=== PATIENT | male | born 1940 | race Caucasian/White ===

== ENCOUNTER 2021-04-27 15:32 | Inpatient (IN) | payer MEDICARE ==
[~2021-04-27] VITALS: Ht 165.1 cm; Wt 73.8 kg
[2021-04-27] MEDS ORDERED: DEPAKOTE ER 25250 MG PO ×2 (15:56→15:57)
[2021-04-27] MEDS ORDERED: ALLEGRA ALLERG180 MG PO (15:56)
[2021-04-27] MEDS ORDERED: FARXIGA10 PO (15:57)
[2021-04-27] MEDS ORDERED: ELIQUIS 2.5 PO (15:57)
[2021-04-27] MEDS ORDERED: ATROVENT I0.2 MG/1 M IH (15:58)
[2021-04-27] MEDS ORDERED: ZOLOFT 50MG50 MG PO (15:59)
[2021-04-27] MEDS ORDERED: PROTONIX 40MG T40 MG PO (15:59)
[2021-04-27] MEDS ORDERED: ZOCOR 20MG20 MG PO (15:59)
[2021-04-27] MEDS ORDERED: TRESIBA100 UNIT/1 SQ (16:00)
[2021-04-27] MEDS ORDERED: KENALOG DENTAL P5 GM DT (16:01)
[2021-04-27] MEDS ORDERED: VITAMIN D31000 IU PO (16:02)
[2021-04-27 18:33] LABS: BASO % 0.2 % (0.0-2.0); EOS # 0.1 K/mm3 (0.0-0.7); EOS % 0.8 % (0.0-4.0); GRAN # 7.5 K/mm3 (1.4-6.5); GRAN % 81.6 % (42.2-75.2); HEMATOCRIT 43.3 % (42.0-52.0); HEMOGLOBIN 13.8 g/dl (13.5-18.0); LYMPH # 0.9 K/mm3 (1.2-3.4); LYMPH % 10.2 % (20.0-51.0); MEAN CELL VOLUME 94 fl (80.0-100.0); MEAN CORPUSCULAR HEMOGLOBIN 30 pg (27-31); MEAN CORPUSCULAR HGB CONC 32 g/dl (33.0-37.0); MEAN PLATELET VOLUME 11.5 fl (7.4-10.4); MONO # 0.6 K/mm3 (0.1-0.6); MONO % 6.9 % (1.7-9.3); PLATELET COUNT 122 K/mm3 (130-400); RED BLOOD COUNT 4.63 M/mm3 (4.20-5.60); REDCELL DISTRIBUTION WIDTH-CV 14.3 % (11.5-14.5)
[2021-04-27 18:39] LABS: INR 1.3 (0.8-3.0); PROTHROMBIN TIME 13.9 SECONDS (9.7-12.8)
[2021-04-27 18:41] LABS: PARTIAL THROMBOPLASTIN TIME 31.7 SECONDS (26.0-37.0)
[2021-04-27 18:49] LABS: ALBUMIN 3.3 gm/dL (3.4-4.8); BILIRUBIN,TOTAL 0.5 mg/dL (0.2-1.2); CALCIUM 8.8 mg/dL (8.4-10.2); CREATININE, serum 1.64 mg/dL (0.72-1.25); POTASSIUM 4.8 mmol/L (3.5-4.5); TOTAL PROTEIN 6.8 gm/dL (6.2-8.1)
[2021-04-27] MEDS ORDERED: TYLENOL 325MG325 MG PO (19:11)
[2021-04-27] MEDS ORDERED: BENADRYL25 M2 PO (19:11)
[2021-04-27] MEDS ORDERED: GOOD NEIGH1200 MG/15 PO (19:12)
[2021-04-27] MEDS ORDERED: DULCOLAX S10 MG/SUPP RC (19:12)
[2021-04-27] MEDS ORDERED: NOVOLOG 100U100 U/M1 SQ (19:13)
[2021-04-27] MEDS ORDERED: NICORETTE4 MG PO (19:13)
[2021-04-27] MEDS ORDERED: MIRALAX PA17 GM/Dose PO (19:13)
[2021-04-27] MEDS ORDERED: NYSTATIN POWDER15 GM TOP (19:14)
[2021-04-27] MEDS ORDERED: ULTRAM 50MG TAB50 MG PO (19:14)
--- NOTE | 2021-04-27 19:15 | NUR ---
PT ADMITTED TO ROOM 325 FROM ER. A&OX4. O2 AT 4L N/C. NO RESP DISTRESS. INSERTED #16FR GONCALVES WITH IMMEDIATE RETURN OF CLEAR YELLOW URINE. CALL LIGHT IN REACH. BED ALARM SET.
[2021-04-27 19:28] VITALS: BP 123/64; PULSE 71; TEMP 98.3
[2021-04-27 19:50] LABS: COLLECTION METHOD CATHETER
[2021-04-27 19:56] LABS: MUCOUS Present (NOT PRESENT); PH 6 (5-8); SQUAMOUS EPITHELIAL None Seen /hpf (0-10); URINE APPEARANCE Clear (CLEAR/HAZY); URINE BACTERIA None Seen /hpf (NONE SEEN); URINE BILIRUBIN Negative (NEGATIVE); URINE BLOOD 1+ (NEGATIVE); URINE COLOR Yellow (YELLOW); URINE GLUCOSE 3+ (NEGATIVE); URINE KETONE Negative (NEGATIVE); URINE LEUKOCYTE ESTERASE Negative (NEGATIVE); URINE NITRATE Negative (NEGATIVE); URINE PROTEIN(semi-quant) Negative (NEGATIVE); URINE RBC 0-2 /hpf (0-2); URINE UROBILINOGEN Negative (NEGATIVE)
[2021-04-27 23:14] VITALS: BP 102/49; PULSE 73; TEMP 98.7
[2021-04-28] VITALS (249 sets, daily range): BP systolic 104–131; BP diastolic 48–78; PULSE 60–89; TEMP 97.4–98.4; O2SAT 63–100
[2021-04-28 05:40] LABS: BASO % 0.4 % (0.0-2.0); EOS % 0.6 % (0.0-4.0); GRAN # 4.6 K/mm3 (1.4-6.5); GRAN % 69.2 % (42.2-75.2); HEMATOCRIT 40.4 % (42.0-52.0); HEMOGLOBIN 12.6 g/dl (13.5-18.0); LYMPH # 1.1 K/mm3 (1.2-3.4); LYMPH % 16.7 % (20.0-51.0); MEAN CELL VOLUME 95 fl (80.0-100.0); MEAN CORPUSCULAR HEMOGLOBIN 30 pg (27-31); MEAN CORPUSCULAR HGB CONC 31 g/dl (33.0-37.0); MEAN PLATELET VOLUME 11.5 fl (7.4-10.4); MONO # 0.9 K/mm3 (0.1-0.6); MONO % 12.7 % (1.7-9.3); PLATELET COUNT 108 K/mm3 (130-400); RED BLOOD COUNT 4.25 M/mm3 (4.20-5.60); REDCELL DISTRIBUTION WIDTH-CV 14.3 % (11.5-14.5)
[2021-04-28 05:47] LABS: CALCIUM 8.3 mg/dL (8.4-10.2); CREATININE, serum 1.63 mg/dL (0.72-1.25); POTASSIUM 4.6 mmol/L (3.5-4.5)
--- NOTE | 2021-04-28 09:11 | NUR ---
SIMÓN contacted Lyndsey at [facility] and confirmed he is a long-term resident with them. He resides there with his . SIMÓN contacted the patient's granddaughter, Aleida Myers (ph#[phone]), to discuss discharge and inquire about a DPOA-HC. Aleida states that she does have a copy of the patient's DPOA-HC and will email it to his SW. SIMÓN provided her with this SIMÓN's email. Aleida states that she believes the DPOA-HC designates the patient's and then her. Aleida believes that the patient's is of sound mind. The patient's PCP is Dr. Garrison Gallagher. Aleida confirms thats that the plan is for the patient to return back to [facility] upon discharge. The patient has a fracture and will have surgery, once medically cleared. SIMÓN to fax updates to [facility] and will continue to follow. *Discharge plan: [facility] LTC*
--- NOTE | 2021-04-28 10:41 | NUR ---
SIMÓN received the patient's DPOA-HC, via email, from Aleida. SIMÓN placed the document in the patient's chart. The patient's DPOA-HC is his , Mary Harrington. The alternate is his granddaughter, Aleida Myers.
--- NOTE | 2021-04-28 10:43 | NUR ---
Social Work student faxed updates to [facility].
--- NOTE | 2021-04-28 12:50 | NUR ---
PT IS IN BED WITH EYES CLOSED, FREQUENTLY DRIFTS OFF TO SLEEP, IS ORIENTED X4. RESPIRATIONS UNLABORED ON 4L O2 VIA NC. PT WEARS 4L @ HOME. PT HAS BEEN REPOSITIONED IN BED X2, HAS PAIN WITH MOVEMENT, GROANS ET GRIMACES. IMMOBILIZER IN PLACE TO LEFT LEG. IVF INFUSING. GONCALVES CATHETER DRAINING CLEAR YELLOW URINE. PT HAS BEEN GIVEN BED BATH ET GOWN HAS BEEN CHANGED. CALL LIGHT WITHIN REACH. BED ALARM USED FOR SAFETY.
--- NOTE | 2021-04-28 13:33 | NUR ---
PT TAKEN TO SURGERY.
--- NOTE | 2021-04-28 16:08 | NUR ---
PT ARRIVED TO UNIT FROM PACU. PT WAKES TO NAMES BUT IS DROWSY. STATES HE HAS NO PAIN AT THIS TIME. LEG BRACE TO LEFT LEG WITH DRESSING CLEAN, DRY, AND INTACT. PT ON 4L NC; THIS IS PT'S BASELINE O2 REQUIREMENT. FC TO DEPENDENT DRAINAGE. VITAL SIGNS WITHIN NORMAL LIMITS. PT ORIENTED TO ROOM AND GIVEN CALL LIGHT.
--- NOTE | 2021-04-28 20:20 | NUR ---
TX GIVEN VIA MASK, PT VERY SLEEPY AT THIS TIME. TOLERATED WELL.
[2021-04-29] VITALS (217 sets, daily range): BP systolic 102–154; BP diastolic 60–64; PULSE 68–86; TEMP 97.7–98.9; O2SAT 75–100
[2021-04-29 04:49] LABS: HEMOGLOBIN 11.3 g/dl (13.5-18.0); MEAN CELL VOLUME 97 fl (80.0-100.0); MEAN CORPUSCULAR HEMOGLOBIN 30 pg (27-31); MEAN CORPUSCULAR HGB CONC 31 g/dl (33.0-37.0); MEAN PLATELET VOLUME 11.8 fl (7.4-10.4); PLATELET COUNT 104 K/mm3 (130-400); RED BLOOD COUNT 3.75 M/mm3 (4.20-5.60)
[2021-04-29 04:50] LABS: HEMATOCRIT 36.2 % (42.0-52.0)
[2021-04-29 05:02] LABS: CALCIUM 8.1 mg/dL (8.4-10.2); CREATININE, serum 1.49 mg/dL (0.72-1.25); POTASSIUM 4.7 mmol/L (3.5-4.5)
--- NOTE | 2021-04-29 07:54 | NUR ---
BEDSIDE REPORT RECEIVED FROM ITZ CHARLES. BRACE TO LEFT LEG AT ALL TIMES. DRESSING TO LEFT LEG CLEAN, DRY, AND INTACT. 20G PIV TO LEFT FA; SALINE LOCKED. FC TO DEPENDENT DRAINAGE. PT OFFERS NO COMPLAINTS OF PAIN AT THIS TIME.
--- NOTE | 2021-04-29 08:56 | NUR ---
PT EXPERIENCING PAIN WITH MOVEMENT THIS AM. PRN TRAMADOL GIVEN. PT WAS ABLE TO GET UP TO CHAIR WITH ASSISTANCE OF PT. PT SITS IN CHAIR WITH LEGS ELEVATED AND LEG IMMOBILIZER IN PLACE TO LEFT LEG. DRESSING CLEAN, DRY, AND INTACT.
--- NOTE | 2021-04-29 10:23 | NUR ---
Initial visit; Patient thanked Ice Puller for looking in on him and keeping him in her prayers.
--- NOTE | 2021-04-29 13:50 | NUR ---
SIMÓN faxed clinical updates to [facility]. Informed of possible discharge tomorrow.
--- NOTE | 2021-04-29 16:00 | NUR ---
PATIENT RECIEVED FROM ICU UNIT. STABLE. NO COMPLAINTS AT THIS TIME. RESTING WITH EYES CLOSED. WILL CONT TO MONITOR. VITALS WNL, 4L VIA NC WHICH IS BASELINE FOR PATIENT.
--- NOTE | 2021-04-29 16:16 | NUR ---
PT TAKEN TO ROOM 329 ON SURGICAL FLOOR. REPORT GIVEN TO ITZ KEBEDE. ALL BELONGING TAKEN TO ROOM WITH PATIENT. PT GIVEN TRAMADOL PRIOR TO TRANSFER DUE TO PAIN IN LEFT LEG.
[2021-04-30 05:00] VITALS: BP 155/61; PULSE 75; TEMP 98
--- NOTE | 2021-04-30 05:33 | NUR ---
RESTED THROUGH THE NIGHT OFTEN HAVE TO REMIND PT TO LEAVE O2 ON. BARREL DRAINER DOES COMPLETE BED CHANGE THIS AM. PT MEDICATED FOR PT THIS AM. NEEDS MET.
[2021-04-30 05:46] LABS: BASO % 0.3 % (0.0-2.0); EOS # 0.1 K/mm3 (0.0-0.7); GRAN # 6.3 K/mm3 (1.4-6.5); GRAN % 70.4 % (42.2-75.2); HEMOGLOBIN 11.6 g/dl (13.5-18.0); LYMPH # 1.4 K/mm3 (1.2-3.4); LYMPH % 15.3 % (20.0-51.0); MEAN CELL VOLUME 96 fl (80.0-100.0); MEAN CORPUSCULAR HEMOGLOBIN 30 pg (27-31); MEAN CORPUSCULAR HGB CONC 31 g/dl (33.0-37.0); MEAN PLATELET VOLUME 11.9 fl (7.4-10.4); MONO # 1.1 K/mm3 (0.1-0.6); MONO % 12.3 % (1.7-9.3); PLATELET COUNT 102 K/mm3 (130-400); RED BLOOD COUNT 3.85 M/mm3 (4.20-5.60); REDCELL DISTRIBUTION WIDTH-CV 14.2 % (11.5-14.5)
[2021-04-30 06:07] LABS: CALCIUM 8.8 mg/dL (8.4-10.2); CREATININE, serum 1.4 mg/dL (0.72-1.25); POTASSIUM 4.1 mmol/L (3.5-4.5)
[2021-04-30 07:40] VITALS: BP 154/62; PULSE 74; TEMP 98.7
--- NOTE | 2021-04-30 10:30 | NUR ---
during med pass pt stated his R heel was hurting. R TEDs removed and pillow placed under R heel. skin CDI
--- NOTE | 2021-04-30 10:33 | NUR ---
Pt drowsy and unable to keep eyes open during assessment. AP 74 with VS WNL. Pedal pulses weak with warmth to LLE. TEDs applied to RLE. Pt has a brace on LLE and an aquacell that is CDI covering incision. Pt stated last bm was on 04/26 in the assisted and had an episode of urine incontinence this am. Peripheral IV in L forearm with no signs of infiltration or phlebitis. Pt up in chair eating breakfast with no complaints at this time.
[2021-04-30] MEDS ORDERED: ULTRAM 50MG TAB50 MG PO (10:56)
[2021-04-30] MEDS ORDERED: OSCAL 500 TAB500 MG PO (10:57)
--- NOTE | 2021-04-30 11:00 | NUR ---
bladder scan done on pt showing 363 ml of urine. pt had another small episode of urine incontinence
[2021-04-30 11:20] VITALS: BP 135/76; PULSE 82; TEMP 98.9
--- NOTE | 2021-04-30 11:24 | NUR ---
The clinical team is ready to discharge the patient today. SIMÓN notified Melania at [facility] and inquired about if they want SNF or LTC orders. Melania states that they do not contract with the patient's insurance, [employer], and she asked for long-term care orders with Medicare Part B PT/OT to eval and treat. SIMÓN informed the PA. A transport time was scheduled for [id number]. SIMÓN contacted and updated the patient's granddaughter, Aleida. Aleida in agreement to the plan. SIMÓN read the IM form outloud to Aleida over the phone. Aleida verbalized understanding and is in agreement to discharge today. She gave SIMÓN approval to sign the form on her behalf. The patient is to discharge today, 04/30, back to [facility] for long-term care with Medicare Part B PT/OT to eval and treat. Transportation was scheduled at [id number], via [facility]. SIMÓN informed the patient's RN and granddaughter of the time. No additional needs at this time.
--- NOTE | 2021-04-30 11:28 | NUR ---
First visit from the catering chef. No needs right now.
--- NOTE | 2021-04-30 13:05 | NUR ---
REPORT CALLED TO BRIANA MOBLEY @ [facility]. PT TO TRANSFER AROUND 1330.
== END 2021-04-30 14:00 | DRG 481 ==
LOC: COL.ER 15:32 → ICU 18:00 → SURG 18:00 → ICU 04-28 16:18 → SURG 04-29 16:31
PROVIDERS: Internal Medicine; Orthopaedic Surgery; Physician Assistant; Student in an Organized Health Care Education/Training Program; ADMIT Internal Medicine
PROC: 0QSC04Z Reposition Left Lower Femur with Internal Fixation Device, Open Approach (ICD-10-PCS; principal; 2021-04-28 13:15)
DX: S72.402A Unspecified fracture of lower end of left femur, initial encounter for closed fracture (principal); M97.12XA Periprosthetic fracture around internal prosthetic left knee joint, initial encounter; I48.91 Unspecified atrial fibrillation; J44.9 Chronic obstructive pulmonary disease, unspecified; K21.9 Gastro-esophageal reflux disease without esophagitis; I25.10 Atherosclerotic heart disease of native coronary artery without angina pectoris; E78.5 Hyperlipidemia, unspecified; E11.51 Type 2 diabetes mellitus with diabetic peripheral angiopathy without gangrene; M19.90 Unspecified osteoarthritis, unspecified site; E11.22 Type 2 diabetes mellitus with diabetic chronic kidney disease; I12.9 Hypertensive chronic kidney disease with stage 1 through stage 4 chronic kidney disease, or unspecified chronic kidney disease; N18.9 Chronic kidney disease, unspecified; E11.40 Type 2 diabetes mellitus with diabetic neuropathy, unspecified; F03.90 Unspecified dementia, unspecified severity, without behavioral disturbance, psychotic disturbance, mood disturbance, and anxiety; F32.9 Major depressive disorder, single episode, unspecified; K59.00 Constipation, unspecified; E55.9 Vitamin D deficiency, unspecified; J30.9 Allergic rhinitis, unspecified; D69.6 Thrombocytopenia, unspecified; R32 Unspecified urinary incontinence; W01.0XXA Fall on same level from slipping, tripping and stumbling without subsequent striking against object, initial encounter; Y93.89 Activity, other specified; Y92.121 Bathroom in nursing home as the place of occurrence of the external cause; Z96.653 Presence of artificial knee joint, bilateral; Z79.01 Long term (current) use of anticoagulants; Z99.81 Dependence on supplemental oxygen; Z86.711 Personal history of pulmonary embolism; Z87.891 Personal history of nicotine dependence; Z79.4 Long term (current) use of insulin; Z95.4 Presence of other heart-valve replacement; Z20.822 Contact with and (suspected) exposure to COVID-19
CPT/HCPCS: 99223-AI; 99232-AI; 99233-AI; 99239; A9284; C1713; C1776; J0690; J1100; J1815; J2250; J2270; J2370; J2405; J2704; J2795; J3010; J7030; J7050